=== PATIENT | male | born 1955 | race Caucasian/White ===

== ENCOUNTER → 2021-01-01 09:44 | Outpatient (CLI) | payer BC ==
--- NOTE | ~2021-01-01 | ST ---
PATIENT:GREG MOLINA MEDICAL RECORD: [id number] SEX: M LOCATION:[facility] ORDER #: ADMISSION DATE: 01/01/21 AGE OF PATIENT: 65 REFERRING PHYSICIAN: INTERPRETING PHYSICIAN: FANY ENCISO MD DATE OF SERVICE: 01/01/2021 NUCLEAR STRESS TEST GATED: Gated is abnormal with abnormal contractility and thickening of the anterior apex, anteroapical region. Overall, LV function reduced at 42%. SPECT IMAGING: SPECT imaging was performed. Short axis view: Short axis view shows fixed defect along the anterior apical to apical and inferior apical region. Horizontal axis: This is confirmed in the horizontal axis with a fixed defect along the anterior apex, true apex, and inferior apical region. Vertical axis: Vertical axis confirms fixed apical defect. FINAL IMPRESSION: 1. Abnormal gated with abnormal wall motion. Previously at EF 42%. 2. Abnormal SPECT imaging with a fixed defect seen in all 3 views. This scan is consistent with known history of coronary artery disease and underlying cardiomyopathy. No significant reversibility seen here. Continue medical management of cardiomyopathy and coronary artery disease, recommended. TRANSINT:[id number] Voice Confirmation ID: [id number] DOCUMENT ID: [id number] FANY ENCISO MD CC: [id number] DICTATION DATE: 01/02/21 1354 POLISHER DIAL: 01/03/21 0636 DEP CLI 01/01/21 [id number] [place] [id number]
== END | disposition home or self-care (01) ==
LOC: D.HCCARDIO 09:30
PROVIDERS: ATTEND Internal Medicine Interventional Cardiology
DX: I48.91 Unspecified atrial fibrillation (principal)